=== PATIENT | female | born 1990 | race Two or more races ===

== ENCOUNTER 2021-08-12 20:37 | Emergency (ER) | payer OTHER ==
[~2021-08-12] VITALS: Ht 167.6 cm; Wt 65.8 kg
--- NOTE | 2021-08-12 21:15 | NUR ---
PT MAYA FROM HOME C/O RUQ PAIN SINCE 2AM YESTERDAY. +VOMITTING. PT A/OX4. TOLERATING R/A WELL WITH NO SOB. CONNECTED PT TO POX AND MONITOR
[2021-08-12] MEDS ORDERED: ONDANSETRON HCL/PF 4 MG/2 ML VIAL ONE (22:26)
[2021-08-12] MEDS ORDERED: MORPHINE SULFATE INJ 2 MG/ML DISP.SYRIN ONE (22:26)
[2021-08-12] MEDS ORDERED: MORPHINE SULFATE INJ 2 MG/ML DISP.SYRIN IV ONE (22:30)
[2021-08-12] MEDS ORDERED: ONDANSETRON HCL/PF 4 MG/2 ML VIAL IV ONE (22:30)
[2021-08-12 22:48] LABS: BASOPHILS # (AUTO) 0.1 K/uL (0.0-0.2); BASOPHILS % (AUTO) 0.4 % (0.0-2.0); EOSINOPHILS % (AUTO) 0.4 % (0.0-6.0); HEMATOCRIT 39 % (33-45); HEMOGLOBIN 12.9 g/dL (11.5-14.8); LYMPHOCYTES # (AUTO) 0.9 K/uL (0.8-4.8); LYMPHOCYTES % (AUTO) 6.2 % (20.0-44.0); MEAN CORPUSCULAR HGB CONC 33 g/dl (31.0-36.0); MEAN CORPUSCULAR VOLUME 94 fL (82-100); MONOCYTES # (AUTO) 1.1 K/uL (0.1-1.30); MONOCYTES % (AUTO) 7.4 % (2.0-12.0); NEUTROPHILS % (AUTO) 85.6 % (43.0-81.0); PLATELET COUNT (AUTO) 272 K/uL (150-450); WHITE BLOOD COUNT (AUTO) 15.2 K/uL (4.3-11.0)
--- NOTE | 2021-08-12 22:48 | NUR ---
R SANTIAGO #20G S/L PATENT AND INTACT
--- NOTE | 2021-08-12 22:56 | NUR ---
US TECH AT PT'S BEDSIDE
[2021-08-12] MEDS ORDERED: IV NS 0.9% 1,000 ML BAG IV ONE (23:00)
[2021-08-12 23:58] LABS: BILIRUBIN,URINE MODERATE (NEGATIVE); COLOR,URINE DARK YELLOW (YELLOW); LEUKOCYTE ESTERASE ,URINE NEGATIVE (NEGATIVE); NITRITE, URINE NEGATIVE (NEGATIVE); PH,URINE 6.5 (5.0-8.0); PROTEIN,URINE 30 mg/dl (NEGATIVE); UGLUCOSE NEGATIVE (NEGATIVE)
[2021-08-13] MEDS ORDERED: POLY119P2 PO (00:04)
[2021-08-13] MEDS ORDERED: DOCU-141 PO (00:04)
[2021-08-13 00:27] LABS: BACTERIA,URINE Few /HPF (None Seen)
[2021-08-13 00:28] LABS: MUCUS,URINE Many /LPF (None Seen); SQUAMOUS EPITHELIAL CELL,UR Few /HPF (None Seen)
[2021-08-13 00:29] LABS: ALBUMIN 3.6 g/dL (3.4-5.0); BILIRUBIN,DIRECT 0.2 mg/dL (0.0-0.2); BILIRUBIN,TOTAL 0.8 mg/dL (0.2-1.0); CALCIUM, SERUM 8.7 mg/dL (8.5-10.1); CREATININE 0.8 mg/dL (0.6-1.3); POTASSIUM 3.4 mmol/L (3.5-5.1); TOTAL PROTEIN, SERUM 7.6 g/dL (6.4-8.2)
[2021-08-13 00:57] VITALS: BP 112/70
--- NOTE | 2021-08-13 00:57 | NUR ---
Patient discharged to home in stable condition. Written and verbal after care instructions given. Patient verbalizes understanding of instruction.
== END 2021-08-13 00:58 | disposition home or self-care (01) ==
LOC: ER 20:42
DX: R55 Syncope and collapse (principal); K59.00 Constipation, unspecified; R10.13 Epigastric pain; Z79.1 Long term (current) use of non-steroidal anti-inflammatories (NSAID)
CPT/HCPCS: 36415; 71045; 74176; 76705; 80048; 80076; 81001; 83690; 84703; 85025; 87086; 93005; 96361; 96374; 96375; 99285; J2270; J2405

== ENCOUNTER 2021-08-17 16:09 | Inpatient (IN) | payer OTHER ==
[~2021-08-17] VITALS: Ht 167.6 cm; Wt 65.8 kg
[2021-08-17] MEDS: POTASSIUM CL. PREMIX PERIPHER. 50 ML IV SCH ×2 (00:49→23:49)
[~2021-08-17 16:09] MED LIST: DOCU-141 PO; POLY119P2 PO
[2021-08-17] MEDS ORDERED: ONDANSETRON HCL/PF 4 MG/2 ML VIAL IVP ONE (19:00)
[2021-08-17] MEDS ORDERED: IV NS 0.9% 1,000 ML BAG IV ONE (19:00)
[2021-08-17] MEDS ORDERED: MORPHINE SULFATE INJ 2 MG/ML DISP.SYRIN IV ONE ×2 (19:00→23:00)
--- NOTE | 2021-08-17 19:00 | NUR ---
PT SENT HERE @ [address] ABDOMEN W/ CONTRAST DUE TO WORSENING ABDOMINAL RLQ PAIN,SEEN HERE 08/12/21 FOR CONSTIAPTION AND VASOVAGAL SYNCOPE. PT A/OX4. TOLERATING R/A WELL WITH NO SOB. CONNECTED PT TO POX AND MONITOR
--- NOTE | 2021-08-17 19:02 | NUR ---
URINE COLLECTED AND SENT TO THE LAB
[2021-08-17] MEDS ORDERED: ONDANSETRON HCL/PF 4 MG/2 ML VIAL ONE (19:13)
[2021-08-17] MEDS ORDERED: MORPHINE SULFATE INJ 4 MG/ML DISP.SYRIN ONE ×2 (19:13→22:58)
[2021-08-17] MEDS ORDERED: IOHEXOL-300 100 ML VIAL IV ONE (19:33)
[2021-08-17] MEDS ORDERED: IV NS 0.9% 250 ML IV ONE (19:33)
[2021-08-17 19:41] LABS: BASOPHILS % (AUTO) 0.2 % (0.0-2.0); EOSINOPHILS % (AUTO) 0.3 % (0.0-6.0); HEMATOCRIT 36 % (33-45); HEMOGLOBIN 12.2 g/dL (11.5-14.8); LYMPHOCYTES # (AUTO) 1.8 K/uL (0.8-4.8); LYMPHOCYTES % (AUTO) 12.7 % (20.0-44.0); MEAN CORPUSCULAR HGB CONC 34 g/dl (31.0-36.0); MEAN CORPUSCULAR VOLUME 94 fL (82-100); MONOCYTES # (AUTO) 1.3 K/uL (0.1-1.30); MONOCYTES % (AUTO) 9.1 % (2.0-12.0); NEUTROPHILS % (AUTO) 77.7 % (43.0-81.0); PLATELET COUNT (AUTO) 420 K/uL (150-450); RED BLOOD CELL COUNT(AUTO) 3.89 MIL/uL (4.0-5.2); WHITE BLOOD COUNT (AUTO) 14.2 K/uL (4.3-11.0)
[2021-08-17 19:47] LABS: BACTERIA,URINE Few /HPF (None Seen); BILIRUBIN,URINE NEGATIVE (NEGATIVE); COLOR,URINE YELLOW (YELLOW); LEUKOCYTE ESTERASE ,URINE NEGATIVE (NEGATIVE); NITRITE, URINE NEGATIVE (NEGATIVE); PROTEIN,URINE NEGATIVE (NEGATIVE); SQUAMOUS EPITHELIAL CELL,UR Few /HPF (None Seen); UGLUCOSE NEGATIVE (NEGATIVE); UROBILINOGEN,URINE 0.2 EU/dL (0.2); WBC,URINE NONE SEEN /HPF (0-3)
--- NOTE | 2021-08-17 19:49 | NUR ---
PT AT CT. INSERTED R HAND #18G S/L; PATENT AND INTACT.
[2021-08-17 19:58] LABS: CALCIUM, SERUM 8.9 mg/dL (8.5-10.1); CREATININE 0.7 mg/dL (0.6-1.3); POTASSIUM 3.3 mmol/L (3.5-5.1)
[2021-08-17] MEDS ORDERED: CEFTRIAXONE 1GM BAG (ER ONLY) 1 GM/50 ML PIGGYBACK IV ONE (20:00)
[2021-08-17 20:03] LABS: ALBUMIN 3.2 g/dL (3.4-5.0); BILIRUBIN,DIRECT 0.1 mg/dL (0.0-0.2); BILIRUBIN,TOTAL 0.3 mg/dL (0.2-1.0); TOTAL PROTEIN, SERUM 7.7 g/dL (6.4-8.2)
[2021-08-17] MEDS ORDERED: METRONIDAZOLE 500MG/ NS 100ML 100 ML IV ONE ×3 (21:00→23:46)
--- NOTE | 2021-08-17 21:25 | NUR ---
COVID SWAB SENT TO LAB
[2021-08-17] MEDS ORDERED: CEFTRIAXONE 1GM BAG (ER ONLY) 100 ML IV ONE (21:57)
[2021-08-17] MEDS ORDERED: POTASSIUM CL. PREMIX PERIPHER. 100 ML ONE (22:24)
[2021-08-17] MEDS ORDERED: POTASSIUM CL. PREMIX PERIPHER. 50 ML IV SCH (23:00)
--- NOTE | 2021-08-17 23:50 | NUR ---
L HAND #20G S/L; PATENT AND INTACT
[2021-08-18] MEDS ORDERED: ACETAMINOPHEN 325 MG TABLET PO PRN ×2 (00:30→17:00)
[2021-08-18] MEDS ORDERED: IV NS 0.9% 1,000 ML IV PRN (00:30)
[2021-08-18] MEDS ORDERED: Z GUARD REMEDY 4 OZ OINT TP PRN ×2 (00:30→17:00)
--- NOTE | 2021-08-18 03:58 | NUR ---
SENIOR EDUCATION SPECIALIST AT PT'S BEDSIDE
[2021-08-18] MEDS ORDERED: MORPHINE SULFATE INJ 2 MG/ML DISP.SYRIN ONE ×3 (04:40→21:01)
[2021-08-18] MEDS ORDERED: ONDANSETRON HCL/PF 4 MG/2 ML VIAL ONE ×3 (04:40→21:00)
[2021-08-18] MEDS: MORPHINE SULFATE INJ 2 MG/ML DISP.SYRIN IV PRN ×3 (04:52→21:05)
[2021-08-18] MEDS: ONDANSETRON HCL/PF 4 MG/2 ML VIAL IVP PRN ×3 (04:52→21:06)
--- NOTE | 2021-08-18 04:52 | NUR ---
PT C/O N/V & RLQ PAIN. ADMINISTERED ZOFRAN & MORPHINE ORDERED. WILL REASSESS CONDITION IN 30 MINUTES.
[2021-08-18] MEDS ORDERED: METRONIDAZOLE 500MG/ NS 100ML 500 MG in PREMIX 1 EA IV SCH ×5 (05:00→13:00)
--- NOTE | 2021-08-18 06:03 | NUR ---
UPDATED LAKEISHA (JHONNY) (DAUGHTER) [phone] ON PT'S CURRENT CONDITION
[2021-08-18] MEDS ORDERED: PANTOPRAZOLE 40 MG VIAL ONE (08:56)
[2021-08-18] MEDS: PANTOPRAZOLE 40 MG VIAL IV SCH (09:40)
[2021-08-18 11:03] LABS: BASOPHILS % (AUTO) 0.3 % (0.0-2.0); EOSINOPHILS % (AUTO) 0.4 % (0.0-6.0); HEMATOCRIT 35 % (33-45); HEMOGLOBIN 11.9 g/dL (11.5-14.8); LYMPHOCYTES # (AUTO) 1.7 K/uL (0.8-4.8); LYMPHOCYTES % (AUTO) 14.3 % (20.0-44.0); MEAN CORPUSCULAR HGB CONC 34 g/dl (31.0-36.0); MEAN CORPUSCULAR VOLUME 93 fL (82-100); MONOCYTES # (AUTO) 1.2 K/uL (0.1-1.30); MONOCYTES % (AUTO) 10.4 % (2.0-12.0); NEUTROPHILS # (AUTO) 8.9 K/uL (1.8-8.9); NEUTROPHILS % (AUTO) 74.6 % (43.0-81.0); PLATELET COUNT (AUTO) 399 K/uL (150-450); RED BLOOD CELL COUNT(AUTO) 3.78 MIL/uL (4.0-5.2); WHITE BLOOD COUNT (AUTO) 11.9 K/uL (4.3-11.0)
[2021-08-18 11:50] LABS: ALBUMIN 2.9 g/dL (3.4-5.0); BILIRUBIN,TOTAL 0.4 mg/dL (0.2-1.0); CREATININE 0.7 mg/dL (0.6-1.3); PHOSPHORUS 3.1 mg/dL (2.5-4.9); POTASSIUM 3.5 mmol/L (3.5-5.1); TOTAL PROTEIN, SERUM 7.2 g/dL (6.4-8.2)
[2021-08-18 12:06] LABS: CALCIUM, SERUM 8.5 mg/dL (8.5-10.1)
[2021-08-18] MEDS: ZOSYN IVPB 3.375 G in IV D5W 50ml IV SCH ×3 (12:46→23:55)
--- NOTE | 2021-08-18 15:22 | NUR ---
PER GLUE CLAMP OPERATOR SUMINISTRADO CLEAR LIQUID DIET. THE ORDER IS READ BACK, VERIFIED. NOTED AND CARRIED OUT.
[2021-08-18] MEDS ORDERED: MORPHINE SULFATE INJ 2 MG/ML DISP.SYRIN IV PRN (17:00)
[2021-08-18] MEDS ORDERED: IV 1/2NS 1000 ML 1,000 ML IV PRN (17:00)
[2021-08-18] MEDS ORDERED: ONDANSETRON HCL/PF 4 MG/2 ML VIAL IVP PRN (17:00)
--- NOTE | 2021-08-18 17:28 | NUR ---
LIBRIUM 50 MG PO TID PER [address] REILLY. THE ORDER IS READ BACK, VERIFIED. NOTED AND CARRIED OUT.
[2021-08-18] MEDS: CHLORDIAZEPOXIDE HCL 25 MG CAPSULE PO SCH (18:20)
[2021-08-18] MEDS ORDERED: CHLORDIAZEPOXIDE HCL 25 MG CAPSULE ONE (18:35)
--- NOTE | 2021-08-18 18:46 | NUR ---
ROOM 304-2
[2021-08-18] MEDS: IV NS 0.9% 1,000 ML IV PRN ×2 (19:05→23:56)
--- NOTE | 2021-08-18 20:56 | NUR ---
report given to rn
--- NOTE | 2021-08-18 21:30 | NUR ---
RN NOTE RECEIVED PATIENT FROM ER, A/O X4 , DOES NOT COMPLAIN OF PAIN OR DISTRESS AT THE TIME. PATIENT ON ROOM AIR, SATURATING WELL. IV SITE NOTED ON L HAND, FLUSHED AND PATENT. ALL ENVIRONMENTAL SAFETY MEASURES IN PLACE. 2X SIDE RAILS UP, CALL LIGHT WITHIN REACH, WILL CONTINUE TO MONITOR PATIENT.
[2021-08-18] MEDS ORDERED: CEFTRIAXONE 2 G in IV D5W 100 ML IV SCH (22:00)
[2021-08-18] MEDS ORDERED: PIPERACILLIN /TAZOBACTAM 3.375 G VIAL IV ONE (23:36)
[2021-08-19] MEDS: MORPHINE SULFATE INJ 2 MG/ML DISP.SYRIN IV PRN ×3 (05:16→19:22)
--- NOTE | 2021-08-19 05:30 | NUR ---
RN NOTE PATIENT EXPERIENCING EXCRUCIATING PAIN IN THE RIGHT LOWER QUADRANT, SCREAMING, CRYING, AND GUARDING RLQ AND LEG AREA. VITALS ARE STABLE 111/58 , HR 98 , TEMP 98.3 . ADMINISTERED PAIN MEDICATION TO PATIENT, AND CALLED GROUP EXERCISE INSTRUCTOR DR. BUCKNER FOR FURTHER ORDER.
[2021-08-19] MEDS: ZOSYN IVPB 3.375 G in IV D5W 50ml IV SCH ×3 (05:54→17:43)
[2021-08-19 06:15] VITALS: BP 124/77
--- NOTE | 2021-08-19 06:52 | NUR ---
RN NOTE ALSO CONTACTED ROLF GALAVIZ FOR PATIENTS CONDITION. STILL WAITING FOR REPLY FROM .
--- NOTE | 2021-08-19 06:54 | NUR ---
RN NOTE PATIENT NOW RESTING IN BED WITH LESS PAIN DUE TO MORPHINE, NOW SAYING THAT IT IS ONLY CRAMPING. IV FLUIDS RUNNING. HAVE NO RECEIVED A REPLY BACK FROM . WILL ENDORSE PLAN OF CARE TO AM NURSE.
--- NOTE | 2021-08-19 07:30 | NUR ---
MS RN OPENING NOTE RECEIVED PATIENT ON BED AWAKE AND A/O X4 , DOES NOT COMPLAIN OF PAIN OR DISTRESS AT THE TIME. PATIENT ON ROOM AIR, SATURATING WELL. IV SITE NOTED ON L HAND, FLUSHED AND PATENT. ALL ENVIRONMENTAL SAFETY MEASURES IN PLACE. 2X SIDE RAILS UP, CALL LIGHT WITHIN REACH, WILL CONTINUE TO MONITOR PATIENT.
[2021-08-19 08:00] VITALS: BP 128/76
[2021-08-19] MEDS: CHLORDIAZEPOXIDE HCL 25 MG CAPSULE PO SCH ×4 (08:40→17:00)
[2021-08-19] MEDS: PANTOPRAZOLE 40 MG VIAL IV SCH (08:41)
[2021-08-19 09:30] VITALS: BP 160/98
[2021-08-19] MEDS: IV NS 0.9% 1,000 ML IV PRN ×2 (09:38→17:48)
[2021-08-19] MEDS: LORAZEPAM INJ 2 MG/ML VIAL IV PRN ×2 (13:14→21:16)
[2021-08-19 13:37] LABS: BASOPHILS % (AUTO) 0.5 % (0.0-2.0); EOSINOPHILS % (AUTO) 0.6 % (0.0-6.0); HEMATOCRIT 34 % (33-45); HEMOGLOBIN 11.6 g/dL (11.5-14.8); LYMPHOCYTES # (AUTO) 1.3 K/uL (0.8-4.8); LYMPHOCYTES % (AUTO) 14.4 % (20.0-44.0); MEAN CORPUSCULAR HGB CONC 34 g/dl (31.0-36.0); MEAN CORPUSCULAR VOLUME 93 fL (82-100); MONOCYTES % (AUTO) 10.5 % (2.0-12.0); NEUTROPHILS # (AUTO) 6.9 K/uL (1.8-8.9); PLATELET COUNT (AUTO) 446 K/uL (150-450); RED BLOOD CELL COUNT(AUTO) 3.67 MIL/uL (4.0-5.2); WHITE BLOOD COUNT (AUTO) 9.3 K/uL (4.3-11.0)
[2021-08-19] MEDS ORDERED: DIATR MEGLU/DIATRIZOATE SODIUM 30 ML BOTTLE (GASTROGRAPHIN) ONE (13:47)
[2021-08-19] MEDS ORDERED: IV NS 0.9% 250 ML IV ONE (15:12)
[2021-08-19] MEDS ORDERED: IOHEXOL-300 100 ML VIAL IV ONE (15:12)
[2021-08-19 16:00] VITALS: BP 116/57
--- NOTE | 2021-08-19 19:30 | NUR ---
MS RN CLOSING NOTE PATIENT AWAKE ON BED AWAKE AND A/O X4 , WITH COMPLAINTS OF PAIN ON THE LOWER ABDOMEN, COMFORT MEASURES PROVIDED, PAIN MEDICATION GIVEN. PATIENT ON ROOM AIR, SATURATING WELL. IV SITE NOTED ON L HAND, FLUSHED AND PATENT. ALL ENVIRONMENTAL SAFETY MEASURES IN PLACE. 2X SIDE RAILS UP, CALL LIGHT WITHIN REACH, WILL ENDORSE TO NEXT SHIFT FOR DYAN.
--- NOTE | 2021-08-19 19:35 | NUR ---
MS RN NOTES RECEIVED ON BED A/O 4,BREATHING REGULAR,NOT IN ANY FORM OF DISTRESS,IVF NS AT 125ML/HR RATE INFUSING WELL ON RIGHT HAND SALINE LOCK VIA IV PUMP.APPEARS ANXIOUS ASKING EVERYTHING ABOUT HER LAB RESULT AND TEST PROCEDURES,ADVISED THAT NURSE WILL COMEBACK AND TAKE A LOOK ON TEST PROCEDURES RESULT.CALL LIGHT IN REACH,NEEDS ANTICIPATED.
[2021-08-19 20:00] VITALS: BP 116/76
--- NOTE | 2021-08-19 21:16 | NUR ---
MS RN NOTES C/O AXIETY,ATIVAN 1MG IV GIVEN ORDERED AND PER PATIENT REQUEST.
[2021-08-20] MEDS: ZOSYN IVPB 3.375 G in IV D5W 50ml IV SCH ×5 (00:21→23:48)
--- NOTE | 2021-08-20 06:39 | NUR ---
MS RN NOTES FAIRLY RESTED AT NIGHT,ABLE TO SLEEP WELL WITH ATIVAN FOR ANXIETY.HAD LOOSE BM X1.CALL LIGHT IN REACH,NEEDS ATTENDED.
--- NOTE | 2021-08-20 07:33 | NUR ---
MS RN OPENING NOTES RECEIVED PATIENT RESTING SEMI-FOWLERS IN BED, AROUSABLE BY NAME OR TOUCH TO A/O X 4. PATIENT TOLERATING ROOM AIR WELL WITH NO ACUTE DISTRESS. L HAND 20 G IV PATENT AND FLUSHING WELL WITH NO S/S OF INFECTION OR INFILTRATION. BELL CATHETER DRAINING CLEAR YELLOW URINE TO GRAVITY. ALL ENVIRONMENTAL SAFETY MEASURES IN PLACE. BED IN LOWEST LOCKED POSITION, 2X SIDE RAILS UP, CALL LIGHT WITHIN REACH, WILL CONTINUE TO MONITOR.
[2021-08-20 08:00] VITALS: BP 129/74
[2021-08-20] MEDS: CHLORDIAZEPOXIDE HCL 25 MG CAPSULE PO SCH ×4 (08:37→17:37)
[2021-08-20] MEDS: PANTOPRAZOLE 40 MG VIAL IV SCH (08:38)
--- NOTE | 2021-08-20 10:20 | NUR ---
TEXTED DR. WU FOR MRI APPROVAL.
--- NOTE | 2021-08-20 11:19 | NUR ---
RN NOTES PT FOR MRI OF ABDOMEN AND PELVIS WITH CONTRAST. PROCEDURE EXPLAINED BY DAVID, GARDENER FLORIST AND PT VERBALIZED UNDERSTANDING, ALL CONSENTS SIGNED AND MRI CHECKLIST DONE PROVIDED BY PT.
--- NOTE | 2021-08-20 11:46 | NUR ---
MRI APPROVED , TECH NOTIFIED
--- NOTE | 2021-08-20 13:40 | NUR ---
RN NOTES PT PICKED-UP VIA WHEELCHAIR FOR MRI OF ABDOMEN AND PELVIS.
[2021-08-20] MEDS ORDERED: GADOTERATE MEGLUMINE 5 MMOL/10 ML VIAL IV ONE (15:16)
[2021-08-20] MEDS: MORPHINE SULFATE INJ 2 MG/ML DISP.SYRIN IV PRN (15:17)
--- NOTE | 2021-08-20 15:23 | NUR ---
RN NOTES PATIENT NOTED WITH 8/10 LOWER ABDOMINAL PAIN AND REQUESTED PAIN MEDICATION. PRESCRIBED MORPHINE GIVEN AT THIS TIME VIA IVP. WILL CONTINUE TO MONITOR FOR S/S OF PAIN.
[2021-08-20 16:00] VITALS: BP 128/71
--- NOTE | 2021-08-20 16:51 | NUR ---
RN notes Results of MRI of abdomen w/o contrast shows: Rim-enhancing fluid collection adjacent to the cecum and superior to the right ovary measuring 3.1 cm may represent perforated appendicitis. Normal appearance of the adjacent ovary. ROLF Harden made aware and acknowledged.
[2021-08-20] MEDS: IV NS 0.9% 1,000 ML IV PRN (17:50)
--- NOTE | 2021-08-20 18:51 | NUR ---
MS LOPEZ OPENING NOTES PATIENT RESTING SEMI-FOWLERS IN BED, A/O X 4 TOLERATING ROOM AIR WELL WITH NO ACUTE DISTRESS. L HAND 20 G IV PATENT AND FLUSHING WELL WITH NO S/S OF INFECTION OR INFILTRATION. R HAND 20 G SALINE LOCK UNABLE TO FLUSH AND NO LONGER PATENT AT THIS TIME. BELL CATHETER DRAINING CLEAR YELLOW URINE TO GRAVITY. ALL ENVIRONMENTAL SAFETY MEASURES IN PLACE. BED IN LOWEST LOCKED POSITION, 2X SIDE RAILS UP, CALL LIGHT WITHIN REACH, WILL ENDORSE TO CLINICAL STUDY MANAGER FOR DYAN. Addendum: 08/20/21 at 1854 by ROME BRUNO RN MS LOPEZ CLOSING NOTES
[2021-08-20 20:43] VITALS: BP 120/71
[2021-08-20] MEDS: LORAZEPAM INJ 2 MG/ML VIAL IV PRN (22:34)
[2021-08-21] MEDS: ZOSYN IVPB 3.375 G in IV D5W 50ml IV SCH ×4 (05:59→23:40)
--- NOTE | 2021-08-21 06:13 | NUR ---
MS RN NOTES AWAKE & RESPONSIVE. NOT IN ANY DISTRESS. NO SOB NOTED. DENIES ANY PAIN OR DISCOMFORT AT THIS TIME. WITH IV-HL PATENT & INTACT. MONITORED ACCORDINGLY. CALL LIGHT WITHIN REACH. BED IN LOWEST POSITION. SR UP X 2 FOR SAFETY. WILL ENDORSE TO NEXT SHIFT.
--- NOTE | 2021-08-21 07:15 | NUR ---
MS RN OPENING NOTES PATIENT RESTING SEMI-FOWLERS IN BED, A/O X 4 TOLERATING ROOM AIR WELL WITH NO ACUTE DISTRESS. L HAND 20 G IV PATENT AND FLUSHING WELL WITH NO S/S OF INFECTION OR INFILTRATION. ALL ENVIRONMENTAL SAFETY MEASURES IN PLACE. BED IN LOWEST LOCKED POSITION, 2X SIDE RAILS UP, CALL LIGHT WITHIN REACH, WILL CONTINUE TO MONITOR.
[2021-08-21 08:00] VITALS: BP 136/69
[2021-08-21] MEDS: CHLORDIAZEPOXIDE HCL 25 MG CAPSULE PO SCH ×3 (08:43→17:29)
[2021-08-21] MEDS: PANTOPRAZOLE 40 MG VIAL IV SCH (08:44)
[2021-08-21] MEDS: LORAZEPAM INJ 2 MG/ML VIAL IV PRN ×2 (12:36→18:59)
--- NOTE | 2021-08-21 12:37 | NUR ---
MS RN NOTES PATIENT FOUND TO BE ANXIOUS AT THIS TIME AND REQUESTED ANTI-ANXIETY MEDICATION. ATIVAN 1 MG IVP ADMINISTERED ORDERED. WILL CONTINUE TO MONITOR FOR S/S OF ANXIETY.
--- NOTE | 2021-08-21 14:30 | NUR ---
SS Consult: SS consult for pt.s request regarding her stay in ER. Pts mother was at bedside. Pt. Is a 31-year-old female. Pt. demonstrates adequate insight to the reason for hospitalization. Pt. was oriented x4, alert, and cooperative. During interview, pt. was capable of following directions, made appropriate eye-contact, and appeared well-groomed. Pt.s speech was at a normal rate. Pt.s mood was elevated. AYANA explored pt.s hx of mental health and substance abuse. Pt. reported no hx of mental health, substance abuse, suicidal or homicidal ideation. Pt. denies auditory hallucinations, visual hallucinations, paranoia, or delusions. Pt. requested to speak with AYANA regarding her experience in the ER on the dates of 08/12 and 08/13. AYANA notified director corporate security and she will be forwarding this complaint to the ER director.
--- NOTE | 2021-08-21 15:56 | NUR ---
MS RN NOTES PATIENT NOTED TO HAVE ANXIETY AT THIS TIME AND HAD REQUESTED A XANAX PRESCRIPTION. DR REILLY NOTIFIED AND PRESCRIBED 0.5 MG ORAL TAB ATIVAN DOSE ONE TIME DOSE. MEDICATION GIVEN PRESCRIBED, WILL CONTINUE TO MONITOR FOR S/S OF ANXIETY.
[2021-08-21 16:00] VITALS: BP 127/76
[2021-08-21] MEDS ORDERED: ALPRAZOLAM 0.25 MG TABLET PO ONE ×2 (16:00→22:30)
--- NOTE | 2021-08-21 19:07 | NUR ---
MS RN NOTES PATIENT NOTED WITH ANXIETY AT THIS TIME AND REQUESTED PRESCRIBED ATIVAN. 0.5 MG IVP ADMINISTERED PRESCRIBED. WILL ENDORSE TO CATALOGUE AND SPECIAL PRODUCTS MANAGER FOR CONTINUED MONITORING OF ANXIETY.
--- NOTE | 2021-08-21 19:08 | NUR ---
MS RN CLOSING NOTES PATIENT RESTING SEMI-FOWLERS IN BED, A/O X 4 TOLERATING ROOM AIR WELL WITH NO ACUTE DISTRESS. PATIENT HAS SOME ANXIETY BUT PATIENT'S MOTHER AND SERVICE ANIMAL PRESENT AT BEDSIDE AND ARE PROVIDING COMFORT. L HAND 24G IV PATENT AND FLUSHING WELL WITH NO S/S OF INFECTION OR INFILTRATION. ALL ENVIRONMENTAL SAFETY MEASURES IN PLACE. BED IN LOWEST LOCKED POSITION, 2X SIDE RAILS UP, CALL LIGHT WITHIN REACH, WILL ENDORSE TO CHESTNUT TANNER FOR DYAN.
--- NOTE | 2021-08-21 19:30 | NUR ---
MS RN OPENING NOTES: RECEIVED PATIENT RESTING IN BED, AWAKE, A/O X4. NO S/S OF DISTRESS NOTED. CALL LIGHT WITHIN REACH. BED IN LOWEST AND LOCKED POSITION. AMBULATORY.CLEAR LIQUID DIET, PATIENT AWARE.
[2021-08-21 20:00] VITALS: BP 116/59
[2021-08-21] MEDS ORDERED: ZOLPIDEM TARTRATE 5 MG TABLET PO ONE (21:00)
--- NOTE | 2021-08-21 23:00 | NUR ---
SPOKE TO DR DUGGAN RE: PATIENT WANTS TO EAT. SAID THAT PATIENT CAN'T EAT YET.PATIENT AWARE.
[2021-08-22] MEDS: IV NS 0.9% 1,000 ML IV PRN (03:33)
[2021-08-22] MEDS: ZOSYN IVPB 3.375 G in IV D5W 50ml IV SCH ×3 (05:41→17:02)
--- NOTE | 2021-08-22 07:30 | NUR ---
MS RN OPENING NOTES PATIENT IN BED ASLEEP, EASY TO AROUSE. ALERT AND ORIENTED X 4. NO SOB NOTED. BREATHING IS EVEN AND UNLABORED. NO C/O PAIN OR DISCOMFORT. NO ACUTE DISTRESS NOTED. PT ON ROOM AIR, TOLERATING WELL. IV ACCESS LHAND#24 PATENT AND INTACT WITH NS RUNNING AT 125MLS/HR. ALL SAFETY MEASURE MAINTAINED. HOB ELEVATED, BED LOCKED AND IN LOWEST POSITION WITH SIDE RAILS UP X 2. CALL LIGHT WITHIN REACH. WILL CONTINUE TO MONITOR PATIENT THROUGHOUT SHIFT.
[2021-08-22 08:00] VITALS: BP 127/70
[2021-08-22] MEDS: CHLORDIAZEPOXIDE HCL 25 MG CAPSULE PO SCH ×4 (08:07→16:40)
[2021-08-22] MEDS: PANTOPRAZOLE 40 MG VIAL IV SCH (08:07)
--- NOTE | 2021-08-22 10:00 | NUR ---
RN NOTE PT REFUSED LIBRIUM MEDICATION. STATES SHE IS NOT WITHDRAWING FROM ALCOHOL.
[2021-08-22] MEDS ORDERED: HYDR-3972 PO (10:41)
[2021-08-22] MEDS ORDERED: METR500T PO (10:41)
[2021-08-22] MEDS ORDERED: CIPR500T5 PO (10:41)
[2021-08-22] MEDS: LORAZEPAM INJ 2 MG/ML VIAL IV PRN (11:30)
[2021-08-22 16:00] VITALS: BP 124/71
--- NOTE | 2021-08-22 18:04 | NUR ---
BUILDING CERTIFIER NOTES PT WAS DISCHARGED WITH STABLE VITALS. NO ACUTE DISTRESS NOTED. ALL PATIENT DISCHARGE INSTRUCTIONS REVIEWED WITH PATIENT AND SIGNED; VERBALIZED UNDERSTANDING. ALL BELONGINGS RETURNED. IV ACCESS AND ID BAND REMOVED. PT WAS PICKED UP BY MOTHERJHONNY. OBSERVED PT LEAVE UNIT AT THIS TIME.
[2021-08-23] MEDS ORDERED: PANTOPRAZOLE 40 MG TABLET.DR PO SCH (07:30)
== END 2021-08-22 18:25 | disposition home or self-care (01) | DRG 248 ==
LOC: ER 16:14 → TRANSITION 23:12 → MED 08-18 19:23
PROVIDERS: ADMIT Internal Medicine; ATTEND Nurse Practitioner Family
DX: K35.33 Acute appendicitis with perforation, localized peritonitis, and gangrene, with abscess (principal); K85.90 Acute pancreatitis without necrosis or infection, unspecified; Z20.822 Contact with and (suspected) exposure to COVID-19; E87.6 Hypokalemia; F10.21 Alcohol dependence, in remission; Z91.52 Personal history of nonsuicidal self-harm; D72.829 Elevated white blood cell count, unspecified
CPT/HCPCS: 36415; 71045-TC; 72197-TC; 74183-TC; 76705-TC; 80048-TC; 80053-TC; 80076-TC; 81001; 83690-TC; 83735-TC; 84100-TC; 84703-TC; 85025-TC; 86140-TC; 87040-TC; 87081-TC; A4216; A9575; C9113; C9803; G0378; J0696; J2060; J2270; J2405; J2543; J3480; J7030; J7050; J7060; Q9963; Q9967